=== PATIENT | female | born 1980 | race Caucasian/White ===

== ENCOUNTER → 2017-03-31 | Outpatient (CLI) | payer OTHER ==
[2006-02-26 11:10] VITALS: TEMP 97.6
[~2017-03-31] MED LIST: NORCO 325 MG-7.1 TAB PO
== END ==
LOC: MC.RAD 14:43
DX: R92.8 Other abnormal and inconclusive findings on diagnostic imaging of breast (principal); Z85.3 Personal history of malignant neoplasm of breast; Z98.890 Other specified postprocedural states

== ENCOUNTER → 2017-04-16 | Outpatient (CLI) | payer OTHER | LOC: COL.VAS 12:25 | DX: Z01.810 Encounter for preprocedural cardiovascular examination (principal); C50.919 Malignant neoplasm of unspecified site of unspecified female breast ==

== ENCOUNTER 2017-04-23 06:23 | Day surgery (SDC) | payer OTHER ==
[~2017-04-23] VITALS: Ht 160 cm; Wt 55.0 kg
[2017-04-23 07:29] VITALS: BP 129/90; PULSE 77; TEMP 97.4
[2017-04-23] MEDS ORDERED: NORCO 325 MG-7.1 TAB PO (14:24)
[2017-04-23 15:05] VITALS: BP 147/70; PULSE 67; TEMP 97.2
[2017-04-23 15:20] VITALS: BP 126/67; PULSE 67
[2017-04-23 15:35] VITALS: BP 128/72; PULSE 71
[2017-04-23 15:43] VITALS: BP 138/72; PULSE 68; TEMP 97.5
== END 2017-04-23 16:00 | disposition home or self-care (01) ==
LOC: SDCO 06:23
DX: C50.412 Malignant neoplasm of upper-outer quadrant of left female breast (principal); C77.3 Secondary and unspecified malignant neoplasm of axilla and upper limb lymph nodes; T15.12XA Foreign body in conjunctival sac, left eye, initial encounter; Z80.3 Family history of malignant neoplasm of breast; Z80.0 Family history of malignant neoplasm of digestive organs; Z80.1 Family history of malignant neoplasm of trachea, bronchus and lung; Z80.8 Family history of malignant neoplasm of other organs or systems; Z79.3 Long term (current) use of hormonal contraceptives
CPT/HCPCS: A9541; C1788; J0690; J1100; J1644; J2175; J2250; J2405; J2704; J2795; J3010; J7120